=== PATIENT | male | born 1990 | race African-American/Black ===

== ENCOUNTER 2017-08-14 16:56 | Emergency (ER) | payer SELFPAY ==
[~2017-08-14] VITALS: Ht 172.7 cm; Wt 97.3 kg
[~2017-08-14 16:56] MED LIST: MOTRIN600 MG PO
[2017-08-14] MEDS ORDERED: AFRIN,GENASAL D15 ML BOTH NARES (18:29)
[2017-08-14 18:45] VITALS: BP 146/88
== END 2017-08-14 18:46 | disposition home or self-care (01) ==
LOC: EME 16:56
DX: B34.9 Viral infection, unspecified (principal); F17.200 Nicotine dependence, unspecified, uncomplicated
CPT/HCPCS: 87502; 99281; 99284